=== PATIENT | male | born 1985 | race Caucasian/White ===

== ENCOUNTER 2016-06-17 08:12 | Emergency (ER) | payer MEDICARE, OTHER ==
[~2016-06-17] VITALS: Ht 167.6 cm; Wt 76.7 kg
[~2016-06-17 08:12] MED LIST: /QUET25TA OR; ABIL10TA OR; ALEV220T26 PO; CELE40TA OR; DIAZ5TAB PO; EFFE75CA75 OR; LAMICTAL PO; LATU40TA PO; LIDO5DIS TD; MINI5CAP OR; PAXI20TA3 PO; PRAZOSIN PO; RISP1TAB3 PO; TRAM50TA2 OR; TRAZ100T OR; VALI2TAB PO; XANA0.5T OR; [UNRECOGNIZED DRUG - OTHER] PO
[2016-06-17] MEDS ORDERED: NS 1,000 ML IV ONE (09:00)
[2016-06-17] MEDS ORDERED: MORPHINE 2 MG/ML 1ML SYRINGE IV PRN (09:00)
[2016-06-17 09:13] LABS: BASO % 0.3 % (0.0-1.0); LARGE UNSTAINED CELL # 0.1 K/mm3 (0.0-0.4); LARGE UNSTAINED CELL % 2.7 % (0.0-4.0); LYMPH # 1.6 K/mm3 (1.5-4.5); LYMPH % 33.1 % (24.0-44.0); MEAN CORPUSCULAR HEMOGLOBIN 31.3 pg (27.0-33.0); MEAN CORPUSCULAR HGB CONC 34.2 g/dl (32.0-36.5); MEAN CORPUSCULAR VOLUME 91.5 fl (80.0-96.0); MONO # 0.3 K/mm3 (0.0-0.8); MONO % 5.7 % (0.0-5.0); NEUTROPHILS # 2.7 K/mm3 (1.8-7.7); NEUTROPHILS % 57.1 % (36.0-66.0); PLATELET COUNT, AUTOMATED 233 k/mm3 (150-450); RED CELL DISTRIBUTION WIDTH 12.1 % (11.5-14.5); WHITE BLOOD COUNT 4.8 K/mm3 (4.0-10.0)
[2016-06-17 09:32] LABS: ALBUMIN 4.3 GM/DL (3.2-5.2); ALBUMIN/GLOBULIN RATIO 1.43 (1.00-1.93); ALKALINE PHOSPHATASE 49 U/L (45-117); ALT/SGPT 39 U/L (12-78); AMYLASE 45 U/L (25-115); ANION GAP 6 MEQ/L (8-16); AST/SGOT 12 U/L (15-37); BILIRUBIN,DIRECT 0.1 MG/DL (0.0-0.2); BILIRUBIN,TOTAL 0.3 MG/DL (0.2-1.0); BLOOD UREA NITROGEN 16 MG/DL (7-18); CALCIUM LEVEL 8.3 MG/DL (8.5-10.1); CARBON DIOXIDE LEVEL 30 MEQ/L (21-32); CHLORIDE LEVEL 103 MEQ/L (98-107); GLOMERULAR FILTRATION RATE > 60.0 (>60); GLUCOSE, FASTING 98 MG/DL (70-105); SODIUM LEVEL 139 MEQ/L (136-145); TOTAL PROTEIN 7.3 GM/DL (6.4-8.2)
[2016-06-17] MEDS ORDERED: ISOVUE-370 76% 100ML VIAL (Q9967) As Ordered ONE (09:36)
--- NOTE | 2016-06-17 10:53 | REP ---
Clinical: Right lower quadrant pain. Technique: Axial contrast enhanced images from the lung bases to the pubic symphysis using 100 ml Isovue 370 intravenous contrast material with coronal and sagittal re-formations. Comparison: 03/15/2016. Findings: Liver, spleen, pancreas, gallbladder, bilateral adrenal glands and kidneys are essentially normal. A single 1 mm gallstone cannot be excluded and there is no evidence for acute cholecystitis by CT evaluation. The enteric system is without obstruction or acute inflammatory process and a normal terminal ileum and appendix are identified in the right lower quadrant. There is no evidence for acute appendicitis. Pelvis demonstrates normal bladder and age appropriate prostate/seminal vesicles. No ascites. No adenopathy. No mass lesion. Vasculature normal. Musculoskeletal structures intact. Lung bases clear. Impression: Possible 1 mm gallstone without acute cholecystitis. Otherwise normal CT of the abdomen and pelvis. No free fluid. No evidence for appendicitis. Signed by Doug Pizarro MD 06/17/2016 10:45 A
[2016-06-17 12:28] VITALS: BP 119/66
== END 2016-06-17 12:31 | disposition home or self-care (01) ==
LOC: M ED 09:19
DX: K52.9 Noninfective gastroenteritis and colitis, unspecified (principal); G43.909 Migraine, unspecified, not intractable, without status migrainosus; F43.10 Post-traumatic stress disorder, unspecified; Z79.899 Other long term (current) drug therapy
CPT/HCPCS: 36415; 74177; 80048; 80076; 81001; 82150; 83690; 85025; 96374; 99284; Q9967

== ENCOUNTER 2016-09-30 11:43 | Emergency (ER) | payer MEDICARE, OTHER ==
[~2016-09-30] VITALS: Ht 167.6 cm; Wt 85.7 kg
[2016-09-30] MEDS ORDERED: PROP10TA56 (12:26)
[2016-09-30] MEDS ORDERED: FLUO20CA19 (12:26)
[2016-09-30] MEDS ORDERED: NORCO, ANEXSIA 5/325MG TABLET (HYDROcodone/ACETAMINOPHEN) PO ONE (14:15)
--- NOTE | 2016-09-30 14:34 | REP ---
The clinical: Pain and swelling. Technique: Real time velez scale and color Doppler evaluation of the scrotum and testicles using linear high frequency transducer. Findings: The bilateral testicles and epididymi are relatively normal in contour, size, echogenicity, and vascularity without torsion, infectious/inflammatory process, or mass lesion. Incidental note is made of a 2.5 mm left epididymal cyst. Small bilateral hydroceles are identified. Left-sided varicoceles noted up to 3 mm diameter. Right testicle measures 5.2 x 2.3 x 3.3 cm. Left testicle measures 4.9 x 2.0 x 3.3 cm. Impression: Small bilateral hydroceles and left-sided varicoceles. Signed by Doug Pizarro MD 09/30/2016 02:26 P
[2016-09-30 14:37] LABS: BASO % 0.6 % (0.0-1.0); EOS # 0.1 K/mm3 (0.0-0.50); EOS % 1.4 % (0.0-3.0); LARGE UNSTAINED CELL # 0.1 K/mm3 (0.0-0.4); LARGE UNSTAINED CELL % 2.1 % (0.0-4.0); LYMPH # 1.5 K/mm3 (1.5-4.5); MEAN CORPUSCULAR HEMOGLOBIN 31.3 pg (27.0-33.0); MEAN CORPUSCULAR HGB CONC 33.4 g/dl (32.0-36.5); MEAN CORPUSCULAR VOLUME 93.8 fl (80.0-96.0); MONO # 0.3 K/mm3 (0.0-0.8); MONO % 5.4 % (0.0-5.0); NEUTROPHILS # 3.2 K/mm3 (1.8-7.7); NEUTROPHILS % 62.5 % (36.0-66.0); PLATELET COUNT, AUTOMATED 240 k/mm3 (150-450); WHITE BLOOD COUNT 5.1 K/mm3 (4.0-10.0)
--- NOTE | 2016-09-30 14:37 | REP ---
Clinical: Right flank pain. Technique: Real time velez scale ultrasound examination using curved array transducer. Findings: The bilateral kidneys are normal in contour, size, echogenicity, and reniform shape without hydronephrosis, nephrolithiasis, cystic or mass lesion. Right kidney measures 12.3 x 4.0 x 4.7 cm with suggestions for extrarenal pelvis versus mild pelviectasis. Left kidney measures 12.7 x 4.6 x 5.8 cm. Bladder is normal. Impression: Essentially normal renal ultrasound. Cannot exclude right extrarenal pelvis versus mild pelviectasis. No significant hydronephrosis. Signed by Doug Pizarro MD 09/30/2016 02:28 P
[2016-09-30 14:58] LABS: ALBUMIN 3.5 GM/DL (3.2-5.2); ALBUMIN/GLOBULIN RATIO 1.21 (1.00-1.93); ALKALINE PHOSPHATASE 29 U/L (45-117); ALT/SGPT 68 U/L (12-78); ANION GAP 4 MEQ/L (8-16); AST/SGOT 73 U/L (15-37); BILIRUBIN,DIRECT < 0.1 MG/DL (0.0-0.2); BILIRUBIN,TOTAL 0.3 MG/DL (0.2-1.0); BLOOD UREA NITROGEN 10 MG/DL (7-18); CALCIUM LEVEL 7.4 MG/DL (8.5-10.1); CARBON DIOXIDE LEVEL 28 MEQ/L (21-32); CHLORIDE LEVEL 111 MEQ/L (98-107); CREATININE FOR GFR 0.81 MG/DL (0.70-1.30); GLOMERULAR FILTRATION RATE > 60.0 (>60); GLUCOSE, FASTING 80 MG/DL (70-105); POTASSIUM SERUM 3.6 MEQ/L (3.5-5.1); SODIUM LEVEL 143 MEQ/L (136-145); TOTAL PROTEIN 6.4 GM/DL (6.4-8.2)
[2016-09-30 15:57] VITALS: BP 111/76
--- NOTE | 2016-09-30 16:48 | REP ---
Clinical: Acute abdominal pain. Technique: Marley scale ultrasound using curved array transducer. Findings: The liver and pancreas are normal in contour, size, and echogenicity without focal hepatic or pancreatic lesions identified. The gallbladder is essentially normal without gallstones, wall thickening or pericholecystic fluid. Incidental note is made of a 6 mm echogenic focus adherent to the wall of the gallbladder which may represent small polyp or intramural calcification and is essentially of little clinical significance. No biliary ductal dilatation is appreciated, and the common bile duct measures one point the mm diameter. The right kidney is normal in reniform shape without hydronephrosis and measures 11.7 x 6.1 x 4 point a cm. No ascites. Visualized portions of the abdominal aorta normal. Impression: Essentially normal right upper quadrant and gallbladder abdominal ultrasound. 6 mm benign gallbladder calcification versus polyp suggested. Signed by Doug Pizarro MD 09/30/2016 04:39 P
== END 2016-09-30 17:04 | disposition home or self-care (01) ==
LOC: M ED 11:43
DX: N50.811 Right testicular pain (principal); R74.0 Nonspecific elevation of levels of transaminase and lactic acid dehydrogenase [LDH]; G89.29 Other chronic pain; M54.5 Low back pain; F43.10 Post-traumatic stress disorder, unspecified; F33.9 Major depressive disorder, recurrent, unspecified; F41.9 Anxiety disorder, unspecified; Z87.442 Personal history of urinary calculi; Z79.899 Other long term (current) drug therapy; F12.20 Cannabis dependence, uncomplicated

== ENCOUNTER 2017-06-09 16:04 | Emergency (ER) | payer MEDICARE, OTHER ==
[2017-06-09 17:35] LABS: BASO % 0.4 % (0.0-1.0); EOS # 0.1 10^3/uL (0.0-0.50); HEMATOCRIT 40.9 % (42.0-52.0); HEMOGLOBIN 14.1 g/dl (14.0-18.0); IMMATURE GRANULOCYTE % 0.4 % (0-3.0); LYMPH # 1.9 10^3/uL (1.5-4.5); LYMPH % 35.5 % (24.0-44.0); MEAN CORPUSCULAR HEMOGLOBIN 30.3 pg (27.0-33.0); MEAN CORPUSCULAR HGB CONC 34.5 g/dl (32.0-36.5); MONO # 0.5 10^3/uL (0.0-0.8); NEUTROPHILS # 2.8 10^3/uL (1.8-7.7); NEUTROPHILS % 53.7 % (36.0-66.0); PLATELET COUNT, AUTOMATED 229 10^3/uL (150-450); RED BLOOD COUNT 4.65 10^6/uL (4.30-6.10); RED CELL DISTRIBUTION WIDTH 12.1 % (11.5-14.5); WHITE BLOOD COUNT 5.2 10^3/uL (4.0-10.0)
[2017-06-09 18:18] LABS: ALBUMIN 4.6 GM/DL (3.2-5.2); ALBUMIN/GLOBULIN RATIO 1.48 (1.00-1.93); ALKALINE PHOSPHATASE 94 U/L (45-117); ALT/SGPT 105 U/L (12-78); ANION GAP 4 MEQ/L (8-16); AST/SGOT 23 U/L (7-37); BILIRUBIN,TOTAL 0.6 MG/DL (0.2-1.0); BLOOD UREA NITROGEN 16 MG/DL (7-18); CALCIUM LEVEL 9.2 MG/DL (8.5-10.1); CARBON DIOXIDE LEVEL 32 MEQ/L (21-32); CHLORIDE LEVEL 105 MEQ/L (98-107); CREATININE FOR GFR 1.02 MG/DL (0.70-1.30); GLOMERULAR FILTRATION RATE > 60.0 (>60); GLUCOSE, FASTING 88 MG/DL (70-100); LIPASE 85 U/L (73-393); POTASSIUM SERUM 4.7 MEQ/L (3.5-5.1); SODIUM LEVEL 141 MEQ/L (136-145); TOTAL PROTEIN 7.7 GM/DL (6.4-8.2)
== END 2017-06-09 19:09 | disposition home or self-care (01) ==
LOC: M ED 16:04
DX: K82.8 Other specified diseases of gallbladder (principal); N50.811 Right testicular pain; K80.20 Calculus of gallbladder without cholecystitis without obstruction; Z87.442 Personal history of urinary calculi; N43.3 Hydrocele, unspecified; I86.1 Scrotal varices; Z79.899 Other long term (current) drug therapy
CPT/HCPCS: 76705

== ENCOUNTER → 2017-06-24 | Outpatient (CLI) | payer MEDICARE, OTHER ==
[2017-06-24 13:12] LABS: HEMATOCRIT 39.6 % (42.0-52.0); HEMOGLOBIN 13.7 g/dl (13.5-17.5); MEAN CORPUSCULAR HEMOGLOBIN 30.9 pg (27.0-33.0); MEAN CORPUSCULAR HGB CONC 34.6 g/dl (32.0-36.5); MEAN CORPUSCULAR VOLUME 89.2 fl (80.0-96.0); PLATELET COUNT, AUTOMATED 213 10^3/uL (150-450); RED BLOOD COUNT 4.44 10^6/uL (4.30-6.10); RED CELL DISTRIBUTION WIDTH 12.3 % (11.5-14.5); WHITE BLOOD COUNT 5.2 10^3/uL (4.0-10.0)
[2017-06-24 13:28] LABS: ANION GAP 4 MEQ/L (8-16); BLOOD UREA NITROGEN 21 MG/DL (7-18); CALCIUM LEVEL 8.6 MG/DL (8.5-10.1); CARBON DIOXIDE LEVEL 30 MEQ/L (21-32); CHLORIDE LEVEL 108 MEQ/L (98-107); CREATININE FOR GFR 0.98 MG/DL (0.70-1.30); GLOMERULAR FILTRATION RATE > 60.0 (>60); GLUCOSE, FASTING 95 MG/DL (70-100); INR 1.02; POTASSIUM SERUM 4.4 MEQ/L (3.5-5.1); PROTHROMBIN TIME 13.5 SECONDS (12.4-14.5); SODIUM LEVEL 142 MEQ/L (136-145)
[2017-06-24 13:29] LABS: PARTIAL THROMBOPLASTIN TIME 28.5 SECONDS (26.8-37.9)
== END ==
LOC: M SMT 11:05
DX: Z30.09 Encounter for other general counseling and advice on contraception (principal)
CPT/HCPCS: 80048

== ENCOUNTER 2017-06-27 11:00 | Day surgery (SDC) | payer MEDICARE ==
[~2017-06-27 11:00] MED LIST changes: -/QUET25TA OR; -ABIL10TA OR; -ALEV220T26 PO; -CELE40TA OR; -DIAZ5TAB PO; -EFFE75CA75 OR; -LAMICTAL PO; -LATU40TA PO; -LIDO5DIS TD; +LIDOCAINE 2% INJ 100 MG/5 ML SDV (FOR ANES.) As Ordered; +MIDAZOLAM INJ 2 MG/2 ML VIAL (J2250) As Ordered; -MINI5CAP OR; -PAXI20TA3 PO; -PRAZOSIN PO; +PROPOFOL 200 MG/20 ML VIAL As Ordered; -RISP1TAB3 PO; -TRAM50TA2 OR; -TRAZ100T OR; -VALI2TAB PO; -XANA0.5T OR; -[UNRECOGNIZED DRUG - OTHER] PO; +fentaNYL 100 MCG/2 ML INJECTION (J3010) As Ordered
[2017-06-27] MEDS ORDERED: ceFAZolin 2 GM/D5W 50 ML IV BAG (J0690 PER 500MG) As Ordered ×2 (11:10)
[2017-06-27] MEDS: LR 1,000 ML IV ×2 (11:47)
[2017-06-27] MEDS ORDERED: PROPOFOL 200 MG/20 ML VIAL As Ordered ×2 (12:16)
[2017-06-27] MEDS: LIDOCAINE 1% SDV INJ 30 ML VIAL As Ordered ×2 (12:27)
[2017-06-27] MEDS ORDERED: LR 1,000 ML IV ×2 (13:00)
[2017-06-27] MEDS ORDERED: fentaNYL 100 MCG/2 ML INJECTION (J3010) IV ×2 (13:00)
[2017-06-27] MEDS ORDERED: NORCO, ANEXSIA 5/325MG TABLET (HYDROcodone/ACETAMINOPHEN) PO ×2 (13:00)
[2017-06-27] MEDS ORDERED: ONDANSETRON 4MG/2ML VIAL (J2405) IV ×2 (13:00)
[2017-06-27] MEDS ORDERED: ACETAMINOPHEN TAB 650MG DOSE (2X325MG) PO ×2 (13:15)
== END 2017-06-27 13:40 | disposition home or self-care (01) ==
LOC: M SDC 11:00
DX: Z30.2 Encounter for sterilization (principal); K44.9 Diaphragmatic hernia without obstruction or gangrene; K21.9 Gastro-esophageal reflux disease without esophagitis; Z79.899 Other long term (current) drug therapy; Z87.891 Personal history of nicotine dependence
CPT/HCPCS: 55250

== ENCOUNTER 2017-09-12 18:41 | Emergency (ER) | payer MEDICARE, OTHER | END 2017-09-12 18:56 | disposition left against medical advice (07) | LOC: M ED 18:41 | DX: Z53.21 Procedure and treatment not carried out due to patient leaving prior to being seen by health care provider (principal) ==

== ENCOUNTER 2020-02-16 13:21 | Emergency (ER) | payer MEDICARE, OTHER ==
[~2020-02-16] VITALS: Ht 167.6 cm; Wt 90.3 kg
[~2020-02-16 13:21] MED LIST changes: +ABIL10TA OR; +ALEV220T26 PO; +CELE40TA OR; +DIAZ5TAB PO; +EFFE75CA75 OR; +FLUO20CA22 PO; +LAMICTAL PO; +LATU40TA PO; +LEVO750T13 PO; +LIDO5DIS TD; -LIDOCAINE 2% INJ 100 MG/5 ML SDV (FOR ANES.) As Ordered; -MIDAZOLAM INJ 2 MG/2 ML VIAL (J2250) As Ordered; +MINI5CAP OR; +MULT1TAB10 PO; +PAXI20TA3 PO; +PRAZOSIN PO; +PROP10TA56 PO; -PROPOFOL 200 MG/20 ML VIAL As Ordered; +RISP1TAB3 PO; +SERO1TAB3 OR; +TRAM50TA2 OR; +TRAZ100T OR; +VALI2TAB PO; +XANA0.5T OR; +[UNRECOGNIZED DRUG - OTHER] PO; +advil PO; -fentaNYL 100 MCG/2 ML INJECTION (J3010) As Ordered
[2020-02-16] MEDS ORDERED: CLINDAMYCIN 900 MG in IV 1 EA IV ONE (13:45)
[2020-02-16] MEDS ORDERED: NS 1,000 ML IV ONE (13:45)
[2020-02-16 14:19] LABS: BASO % 0.3 % (0.0-1.0); EOS % 0.1 % (0.0-3.0); HEMATOCRIT 42.9 % (42.0-52.0); HEMOGLOBIN 14.2 g/dl (13.5-17.5); LYMPH % 7.6 % (24.0-44.0); MEAN CORPUSCULAR HEMOGLOBIN 30.3 pg (27.0-33.0); MEAN CORPUSCULAR HGB CONC 33.1 g/dl (32.0-36.5); MEAN CORPUSCULAR VOLUME 91.5 fl (80.0-96.0); MONO # 1.1 10^3/uL (0.0-0.8); MONO % 8.5 % (0.0-5.0); NEUTROPHILS # 10.4 10^3/uL (1.5-8.5); PLATELET COUNT, AUTOMATED 158 10^3/uL (150-450); RED BLOOD COUNT 4.69 10^6/uL (4.30-6.10); WHITE BLOOD COUNT 12.5 10^3/uL (4.0-10.0)
[2020-02-16 14:37] LABS: BLOOD UREA NITROGEN 11 MG/DL (7-18); CALCIUM LEVEL 8.5 MG/DL (8.5-10.1); CARBON DIOXIDE LEVEL 30 MEQ/L (21-32); CHLORIDE LEVEL 103 MEQ/L (98-107); CREATININE FOR GFR 1.13 MG/DL (0.70-1.30); GLOMERULAR FILTRATION RATE > 60.0 (>60); GLUCOSE, FASTING 107 MG/DL (70-100); SODIUM LEVEL 136 MEQ/L (136-145)
[2020-02-16] MEDS ORDERED: ISOVUE-370 76% 100ML VIAL As Ordered ONE (15:05)
--- NOTE | 2020-02-16 15:35 | REP ---
INDICATION: infection left neck and face. COMPARISON: None. TECHNIQUE: Axial contrast enhanced images from the skull base to the thoracic inlet with coronal and sagittal reformations using 100 cc Isovue 370 intravenous contrast material. FINDINGS: Mild/moderate swelling and subcutaneous inflammatory fat stranding is appreciated along the left side the neck extending from the periauricular level caudally most consistent with cellulitis. Mild reactive adenopathy is noted. No subcutaneous emphysema. No drainable collection/abscess or mass lesion. The adjacent parotid gland appears normal. The left auditory canal is patent and normal. The mastoid air cells are clear. The osseous structures are intact. Remainder of the visualized sinuses are clear. The oropharynx, parapharyngeal, retropharyngeal and hypopharyngeal structures are intact, symmetric and unaffected. The airway remains midline and patent. No associated mass or mass effect noted. Vasculature is symmetric and normal. IMPRESSION: Left-sided subcutaneous soft tissue swelling and inflammatory stranding along with reactive adenopathy may represent a superficial cellulitis. No further abnormalities noted. <Electronically signed by Doug Pizarro > 02/16/20 [id number]
[2020-02-16] MEDS ORDERED: CLEO300C2 PO (15:42)
[2020-02-16 15:50] VITALS: BP 146/98
== END 2020-02-16 16:00 | disposition home or self-care (01) ==
LOC: M ED 13:21
DX: L03.221 Cellulitis of neck (principal); L03.811 Cellulitis of head [any part, except face]
CPT/HCPCS: 70491; 80048; 83605; 85025; 86140; 87040; 96365; 99284; Q9967

== ENCOUNTER 2024-11-29 21:03 | Emergency (ER) | payer MEDICARE, OTHER ==
[~2024-11-29] VITALS: Ht 167.6 cm; Wt 94.0 kg
[~2024-11-29 21:03] MED LIST changes: +CLEO300C2 PO; +FLUO-365 PO; -FLUO20CA22 PO; -LATU40TA PO; +LATU40TA2 PO; +LEVO1TAB40 PO; -LEVO750T13 PO
[2024-11-29 21:17] VITALS: TEMP 96.7
[2024-11-29 22:09] LABS: BASO # 0.0 10^3/uL (0.0-0.2); BASO % 0.5 % (0.0-1.0); EOS # 0.1 10^3/uL (0.0-0.5); EOS % 0.7 % (0.0-3.0); LYMPH # 1.5 10^3/uL (1.5-5.0); LYMPH % 18.6 % (24.0-44.0); MONO # 0.6 10^3/uL (0.0-0.8); MONO % 7.8 % (2.0-8.0); NEUTROPHILS # 5.9 10^3/uL (1.5-8.5); NEUTROPHILS % 72.0 % (36.0-66.0); PLATELET COUNT, AUTOMATED 210 10^3/uL (150-450)
[2024-11-29 22:33] LABS: CK-MB VALUE MASS < 1.0 NG/ML (<3.6)
[2024-11-29 22:34] LABS: CALCIUM LEVEL 9.7 MG/DL (8.5-10.1); CARBON DIOXIDE LEVEL 26 MMOL/L (20-31); CHLORIDE LEVEL 103 MMOL/L (98-107); CREATININE FOR GFR 0.90 MG/DL (0.70-1.30); GLOMERULAR FILTRATION RATE > 90.0 (>60); POTASSIUM SERUM 3.9 MMOL/L (3.5-5.1); SODIUM LEVEL 143 MMOL/L (136-145)
[2024-11-29 22:37] LABS: CPK CREATINE PHOSPHOKINASE 100 U/L (46-171)
[2024-11-29] MEDS: MORPHINE 4 MG/ML 1 ML VIAL IV ONE (22:51)
[2024-11-29] MEDS ORDERED: ISOVUE-370 76% 100 ML VIAL As Ordered ONE (23:23)
[2024-11-29 23:53] LABS: CK-MB VALUE MASS < 1.0 NG/ML (<3.6)
[2024-11-29] MEDS: MORPHINE 4 MG/ML 1 ML VIAL IV PRN (23:53)
[2024-11-29 23:57] LABS: CPK CREATINE PHOSPHOKINASE 86 U/L (46-171)
[2024-11-30] MEDS: KETOROLAC 30 MG/ML 1 ML VIAL IV ONE (01:08)
[2024-11-30 01:09] LABS: ETHYL ALCOHOL (ETHANOL) 0.054 % (0.000-0.010)
[2024-11-30] MEDS ORDERED: NAPR-885 PO (02:12)
[2024-11-30 02:34] VITALS: BP 130/92; O2SAT 97
== END 2024-11-30 02:47 | disposition home or self-care (01) ==
LOC: M ED 21:03
DX: R07.9 Chest pain, unspecified (principal); F12.10 Cannabis abuse, uncomplicated; R91.1 Solitary pulmonary nodule; K76.0 Fatty (change of) liver, not elsewhere classified; R16.0 Hepatomegaly, not elsewhere classified
CPT/HCPCS: 71045; 71275; 80048; 82077; 82550; 82553; 84484; 85025; 93005; 93041; 94760; 96374; 96375; 96376; 99285; J1885; Q9967